=== PATIENT | female | born 1980 | race African-American/Black ===

== ENCOUNTER 2016-12-09 06:00 | Inpatient (IN) | payer OTHER ==
--- NOTE | 2016-12-09 06:54 | HP ---
Past Medical History - Primary Care Physician PCP:: Hiren Combs - Admission Chief Complaint: 38.6 weeks,previous c/s . labor, ama History of Present Illness: 36 yo f g 5 [id number] weeks, with 2 previous c/s in labor , no rom, cx 1 cm,80 vx -2 mi, fhr cat 1, contraction q 2min History Source: Patient Limitations to Obtaining History: No Limitations - Past Medical History Infectious Disease: Yes: STD's (hsv, no recent out break) - Past Surgical History Past Surgical History: Yes: Hx Myomectomy: No Hx Transabdominal Cerclage: No - Smoking History Smoking history: Current every day smoker Have you smoked in the past 12 months: Yes Aproximately how many cigarettes per day: 5 - Alcohol/Substance Use Hx Alcohol Use: No - Social History Usual Living Arrangement: Yes: With Spouse History of Recent Travel: No Home Medications - Allergies Allergies/Adverse Reactions: Allergies Allergy/AdvReac Type Severity Reaction Status Date / Time No Known Allergies Allergy Verified 07/21/16 22:49 - Home Medications Home Medications: Ambulatory Orders Simethicone [Gas-X] 125 mg PO ONCE 07/21/16 Review of Systems - Review of Systems Constitutional: reports: No Symptoms Eyes: reports: No Symptoms HENT: reports: No Symptoms Neck: reports: No Symptoms Cardiovascular: reports: No Symptoms Respiratory: reports: No Symptoms Genitourinary: reports: No Symptoms Breasts: reports: No Symptoms Reported Musculoskeletal: reports: No Symptoms Integumentary: reports: No Symptoms Neurological: reports: No Symptoms Endocrine: reports: No Symptoms, Unexplained Weight Gain Psychiatric: reports: No Symptoms Physical Exam - Maternity Constitutional: Yes: Well Nourished, No Distress, Calm Eyes: Yes: WNL, Conjunctiva Clear, EOM Intact HENT: Yes: WNL, Atraumatic, Normocephalic Neck: Yes: WNL, Supple, Trachea Midline Cardiovascular: Yes: WNL, Regular Rate and Rhythm Breast(s): Yes: WNL - Abdominal Exam/OB Fundal Height: 40 Number of Fetuses: Single Presentation: Vertex Contractions: Yes Regularity: Regular Intensity: Strong Monitor Mode: External Heart Rate Location: [facility] Category: I Accelerations: Uniform Decelerations: None - Vaginal Exam/OB Vaginal Bleediing: Bloody Show Speculum Exam: No Dilatation (cm): 1 Effacement (%): 80 Amniotic Membrane Status: Intact Presentation: Vertex/Position Station: -2 - Physical Exam Musculoskeletal: Yes: WNL Extremities: Yes: WNL Edema: Yes Edema: LLE: 1+, RLE: 1+ Deep Tendon Reflex Grade: Normal +2 Psychiatric: Yes: WNL Hemorrhage Risk Assessment - Risk Factors Medium Risk Factors: Yes: Prior , uterine surgery,or multiple laparotomies Risk Score: 1 Risk Level: Medium Risk Problem List - Problems (1) with 38 completed weeks gestation Code(s): Z3A.38 - 38 WEEKS GESTATION OF (2) Previous section complicating Code(s): O34.219 - MATERNAL CARE FOR UNSP TYPE SCAR FROM PREVIOUS DEL (3) AMA (advanced maternal age) multigravida 35+ Code(s): O09.529 - SUPERVISION OF ELDERLY MULTIGRAVIDA, UNSPECIFIED TRIMESTER Qualifiers: Trimester: third trimester Qualified Code(s): O09.523 - Supervision of elderly multigravida, third trimester (4) Labor established Code(s): [id number] - Assessment/Plan plan admit for repeat c/s , requesting btl, risks of repeat c/s , btl discussed.
[2016-12-09] MEDS ORDERED: CITRIC ACID/SODIUM CITRATE 30 ML UNIT-DOSE CUP PO ONE (06:58)
[2016-12-09] MEDS ORDERED: ELECTROLYTE-148 SOLN 1,000 ML IV SCH (07:00)
[2016-12-09 07:09] VITALS: BMI 34.7
[2016-12-09] MEDS ORDERED: morphine SULFATE/Preservative Free 0.5 MG/ML (1cc Syringe) EP ONE (07:24)
[2016-12-09] MEDS ORDERED: IBUPROFEN 600 MG TABLET (FP) PO PRN (07:24)
[2016-12-09] MEDS ORDERED: ONDANSETRON 4 MG/2 ML VIAL IVPB PRN (07:24)
[2016-12-09 07:52] LABS: ALBUMIN 2.4 g/dl (3.4-5.0); ALK PHOS 165 U/L (45-117); ANION GAP 11 (8-16); BILIRUBIN,TOTAL 0.2 mg/dL (0.2-1.0); CALCIUM 9.4 mg/dL (8.5-10.1); CO2 25 mmol/L (21-32); COCKROFT - GAULT 183.1325; CREATININE 0.7 mg/dL (0.55-1.02); GLUCOSE,RANDOM 76 mg/dL (74-106); SGOT/AST 15 U/L (15-37); SGPT/ALT 14 U/L (12-78); TOT PROT 6.1 g/dl (6.4-8.2)
[2016-12-09] MEDS ORDERED: BENZOCAINE 28 GM HEMORRHOIDAL OINTMENT PR PRN (08:32)
[2016-12-09] MEDS ORDERED: BENZOCAINE 20% 57 GM BOTTLE TP PRN (08:32)
[2016-12-09] MEDS ORDERED: METHYLERGONOVINE MALEATE 0.2 MG/1 ML AMP IM PRN (08:32)
[2016-12-09] MEDS ORDERED: WITCH HAZEL 50% (TUCKS) 40 PAD/JAR PAD TP PRN (08:32)
[2016-12-09] MEDS ORDERED: oxyCODONE HCL 5 MG TABLET PO PRN (08:32)
[2016-12-09] MEDS ORDERED: diphenhydrAMINE HCL 25 MG CAPSULE (FP) PO PRN (08:32)
[2016-12-09] MEDS ORDERED: OXYTOCIN 20 UNITS in 0.9% NS 1,000 ML IV SCH (08:45)
[2016-12-09] MEDS: IBUPROFEN 800 MG/8 ML IJ IVPB PRN ×2 (13:07→19:18)
[2016-12-09] MEDS: CEFAZOLIN (PRE-DOCKED) 50 ML IVPB SCH (15:19)
[2016-12-09] MEDS: DEXTROSE 5%-LACTATED RINGERS 1,000 ML IV SCH (19:19)
[2016-12-10] MEDS: CEFAZOLIN (PRE-DOCKED) 50 ML IVPB SCH (00:49)
[2016-12-10] MEDS: ACETAMINOPHEN 325 MG TABLET (FP) PO PRN ×3 (03:32→20:08)
[2016-12-10] MEDS: IBUPROFEN 600 MG TABLET (FP) PO PRN ×3 (03:32→14:53)
[2016-12-10] MEDS: SIMETHICONE 80 MG TAB.CHEW (FP) PO PRN ×4 (03:32→20:08)
[2016-12-10] MEDS: DEXTROSE 5%-LACTATED RINGERS 1,000 ML IV SCH (03:33)
[2016-12-10 08:06] LABS: BASOPHIL 0.3 % (0-2.0); EOSINOPHIL 0.5 % (0-4.5); MCH 22.6 pg (25.7-33.7); MCHC 31.1 g/dl (32.0-36.0); MEAN CELL VOLUME 72.5 fl (80-96); MEAN PLT VOLUME 9.9 fl (7.5-11.1); NEUTROPHILS 75.1 % (42.8-82.8); PLATELET COUNT 170 K/MM3 (134-434); RDW 15.7 % (11.6-15.6); WHITE BLOOD COUNT 13.7 K/mm3 (4.0-10.0)
[2016-12-10] MEDS ORDERED: BISACODYL 10 MG SUPP.RECT RC PRN (08:33)
--- NOTE | 2016-12-10 09:24 | OP ---
DATE OF OPERATION: 12/09/2016 PREOPERATIVE DIAGNOSIS: , 38.6 weeks gestation, 2 previous sections, in labor, request of repeat section. POSTOPERATIVE DIAGNOSIS: , 38.6 weeks gestation, 2 previous sections, in labor, request of repeat section. PROCEDURE: Repeat low segment transverse section. SURGEON: Gale Combs MD CUSTOMER SECURITY CLERK: DIVINE Paul ANESTHESIA: Spinal. ANESTHESIOLOGIST: Lencho Summers MD ESTIMATED BLOOD LOSS: 500 mL. OPERATION: The patient was taken to the operating room. Under adequate spinal anesthesia, abdomen and perineum were prepped and draped. Pfannenstiel abdominal skin incision was made over the previous incision. Abdominal wall was cut layer by layer, and the peritoneum was exposed and incised. Upon entering the abdominal cavity, lower uterine segment was identified, and uterovesical fold of peritoneum was established, bladder was pushed down. Then, with the lower blade of the [place] retractor in the pelvis, a low transverse uterine incision was made. This incision extended laterally. Amniotic sac was entered, clear fluid, head delivered, nasopharynx was suctioned, and live baby delivered without any difficulty. Placenta was delivered manually. Uterine cavity was cleaned of all remaining tissue. Uterine incision was closed using 2 layers, 1st layer with 0 Biosyn continuous suture, the 2nd layer with 0 Biosyn imbricating the 1st layer. Bladder flap was closed with 0 Biosyn continuous suture. Both tubes and ovaries were checked, were normal. No active bleeding was seen. All the lap pad, sponge, and instrument counts were correct. Then, peritoneum was closed with 0 Biosyn continuous suture, muscles were brought together with interrupted sutures of 0 Biosyn, fascia was closed with 0 Biosyn continuous suture, subcutaneous fat with interrupted suture of 0 Biosyn, and the skin was closed with 4-0 Biosyn subcuticular suture. The patient tolerated the procedure well, left the OR in good condition. GALE COMBS M.D. [id number]
--- NOTE | 2016-12-10 10:13 | PN ---
Progress Note (short form) - Note Progress Note: pod 1 .s/p repeat c/s.sitting in chair , has mild uterine cramps, no excess vaginal bleeding CBC, BMP 12/10/16 06:00 12/09/16 07:00 abdomen soft, no distension , uterus firm, incision dry, clean , no calf tenderness lochia mild plan ambulate, advance diet, pain management Problem List - Problems (1) with 38 completed weeks gestation Code(s): Z3A.38 - 38 WEEKS GESTATION OF (2) Previous section complicating Code(s): O34.219 - MATERNAL CARE FOR UNSP TYPE SCAR FROM PREVIOUS DEL (3) AMA (advanced maternal age) multigravida 35+ Code(s): O09.529 - SUPERVISION OF ELDERLY MULTIGRAVIDA, UNSPECIFIED TRIMESTER Qualifiers: Trimester: third trimester Qualified Code(s): O09.523 - Supervision of elderly multigravida, third trimester (4) Labor established Code(s): [id number] -
[2016-12-10] MEDS: ENOXAPARIN NA (PORCINE) 40 MG/0.4 ML DISP.SYRIN SQ SCH (10:32)
--- NOTE | 2016-12-10 17:56 | PN ---
Progress Note (short form) - Note Progress Note: Anesthesiology Post-op POD#1 s/p C/S under spinal anesthesia. Pt. feeling well, denies pain or h/a. Walking and able to urinate without difficulty. VSS.
[2016-12-10] MEDS: oxyCODONE HCL 5 MG TABLET PO PRN (20:07)
[2016-12-11] MEDS: oxyCODONE HCL 5 MG TABLET PO PRN ×5 (00:33→19:32)
[2016-12-11] MEDS: ACETAMINOPHEN 325 MG TABLET (FP) PO PRN ×5 (00:33→19:33)
[2016-12-11] MEDS: SIMETHICONE 80 MG TAB.CHEW (FP) PO PRN ×4 (00:33→19:32)
--- NOTE | 2016-12-11 06:53 | PN ---
Post Progress Note - Subjective Subjective: 36 yo P3 no complains + flatus, + ambulation, tolerating PO Post Day: 2 Type of Delivery: Repeat C/S Vital Signs: Vital Signs Temperature 97.8 F 12/10/16 22:00 Pulse Rate 75 12/10/16 22:00 Respiratory Rate 18 12/10/16 22:00 Blood Pressure 99/64 12/10/16 22:00 O2 Sat by Pulse Oximetry (%) 99 12/09/16 09:30 Breast Exam: Yes: Soft Uterus: Yes: Fundus Firm Incision: Yes: Dressing dry and intact, Bryce intact Abdomen/GI: Yes: Abdomen soft Lochia: Yes: Rubra Lochia, amount: Small Extremities: Yes: Calves non-tender - Labs Labs: CBC WBC 13.7 K/mm3 (4.0-10.0) H 12/10/16 06:00 RBC 3.70 M/mm3 (3.60-5.2) 12/10/16 06:00 Hgb 8.4 GM/dL (10.7-15.3) L 12/10/16 06:00 Hct 26.8 % (32.4-45.2) L 12/10/16 06:00 MCV 72.5 fl (80-96) L 12/10/16 06:00 MCHC 31.1 g/dl (32.0-36.0) L 12/10/16 06:00 RDW 15.7 % (11.6-15.6) H 12/10/16 06:00 Plt Count 170 K/MM3 (134-434) 12/10/16 06:00 MPV 9.9 fl (7.5-11.1) 12/10/16 06:00 Neutrophils % 75.1 % (42.8-82.8) D 12/10/16 06:00 Lymphocytes % 15.4 % (8-40) D 12/10/16 06:00 Monocytes % 8.7 % (3.8-10.2) 12/10/16 06:00 Eosinophils % 0.5 % (0-4.5) 12/10/16 06:00 Basophils % 0.3 % (0-2.0) 12/10/16 06:00 Assessment/Plan 36yo P3 POD # 2 s/p Repeat c/s and BTL doing well, VSS continue, routine PP care
[2016-12-11] MEDS: ENOXAPARIN NA (PORCINE) 40 MG/0.4 ML DISP.SYRIN SQ SCH (09:47)
[2016-12-11] MEDS: DEXTROSE 5%-LACTATED RINGERS 1,000 ML IV SCH (16:57)
[2016-12-11] MEDS ORDERED: SENNOSIDES/DOCUSATE COMBO (SENNA PLUS) TABLET (UD) PO PRN (22:00)
[2016-12-12] MEDS: ACETAMINOPHEN 325 MG TABLET (FP) PO PRN ×2 (01:34→07:18)
[2016-12-12] MEDS: oxyCODONE HCL 5 MG TABLET PO PRN ×2 (01:34→07:16)
[2016-12-12] MEDS: SIMETHICONE 80 MG TAB.CHEW (FP) PO PRN ×2 (01:34→07:16)
--- NOTE | 2016-12-12 07:20 | PN ---
Post Progress Note - Subjective Subjective: 36 yo P3 now s/p R c/s and BTL +voiding, +flatus, + small BM, ambulating, no breast feeding Post Day: 3 Type of Delivery: Repeat C/S Vital Signs: Vital Signs Temperature 98.0 F 12/11/16 19:37 Pulse Rate 86 12/11/16 19:37 Respiratory Rate 20 12/11/16 19:37 Blood Pressure 138/88 12/11/16 19:37 O2 Sat by Pulse Oximetry (%) 99 12/09/16 09:30 Breast Exam: Yes: Soft Uterus: Yes: Fundus Firm Incision: Yes: Dressing dry and intact, Sutures intact Abdomen/GI: Yes: Abdomen soft, Passing flatus, Tolerating PO Lochia: Yes: Rubra Lochia, amount: Small Activity: Ambulating - Labs Labs: CBC WBC 13.7 K/mm3 (4.0-10.0) H 12/10/16 06:00 RBC 3.70 M/mm3 (3.60-5.2) 12/10/16 06:00 Hgb 8.4 GM/dL (10.7-15.3) L 12/10/16 06:00 Hct 26.8 % (32.4-45.2) L 12/10/16 06:00 MCV 72.5 fl (80-96) L 12/10/16 06:00 MCHC 31.1 g/dl (32.0-36.0) L 12/10/16 06:00 RDW 15.7 % (11.6-15.6) H 12/10/16 06:00 Plt Count 170 K/MM3 (134-434) 12/10/16 06:00 MPV 9.9 fl (7.5-11.1) 12/10/16 06:00 Neutrophils % 75.1 % (42.8-82.8) D 12/10/16 06:00 Lymphocytes % 15.4 % (8-40) D 12/10/16 06:00 Monocytes % 8.7 % (3.8-10.2) 12/10/16 06:00 Eosinophils % 0.5 % (0-4.5) 12/10/16 06:00 Basophils % 0.3 % (0-2.0) 12/10/16 06:00 Assessment/Plan 36yo P3 POD # 3 s/p Repeat c/s and BTL doing well, VSS D/c home today Rh positive NPV for 6weeks RTO 6 weeks
[2016-12-12 08:09] VITALS: BP 132/81; PULSE 73; TEMP 98.4
--- NOTE | 2016-12-12 08:23 | DS ---
Physical Exam-SALES AGENT PEST CONTROL SERVICE Vital Signs: Vital Signs Temperature 98.4 F 12/12/16 08:07 Pulse Rate 73 12/12/16 08:07 Respiratory Rate 20 12/12/16 08:07 Blood Pressure 132/81 12/12/16 08:07 O2 Sat by Pulse Oximetry (%) 99 12/09/16 09:30 Constitutional: Yes: Well Nourished, No Distress, Calm Eyes: Yes: WNL, Conjunctiva Clear, EOM Intact HENT: Yes: WNL, Atraumatic, Normocephalic Neck: Yes: WNL, Supple, Trachea Midline Cardiovascular: Yes: WNL, Regular Rate and Rhythm Respiratory: Yes: WNL, Regular, CTA Bilaterally Gastrointestinal: Yes: WNL ...Rectal Exam: Yes: WNL Renal/: Yes: WNL ....Post : Yes: Uterus firm, Uterus non-tender, Slight lochia rubra Breast(s): Yes: WNL Musculoskeletal: Yes: WNL Extremities: Yes: WNL Edema: LLE: Trace, RLE: Trace Integumentary: Yes: WNL Wound/Incision: Yes: Clean/Dry, Well Approximated, Sutures Intact Neurological: Yes: WNL, Alert, Oriented ...Motor Strength: WNL Psychiatric: Yes: WNL, Alert, Oriented Labs: CBC, BMP 12/10/16 06:00 12/09/16 07:00 Delivery - Delivery Section: Repeat (no complication), Low Flap Transverse Type of Anesthesia: Spinal Episiotomy/Laceration: None EBL (cc): 500 Delivery, Single - Stages of Labor Date 1st Stage Initiatied: 12/09/16 Time 1st Stage Initiated: 05:00 Date of Delivery: 12/09/16 Time of Delivery: 07:51 Time Placenta Delivered: 07:52 Placenta: Yes: Expressed - Condition of Infant Link Wire Fabric Machine Tender/Retirement Village Manager Present: Yes Name: Rodney Cole Infant Gender: Female Weight: 7 lb 1 oz Position: Right, OT Total Hours ROM (Hrs/Mins): 2m - 1 Minute Total Score: 8 5 Minutes Total Score: 9 - [place] Feeding Plan Initial Plan: Elected not to breastfeed exclusively throughout hospitalization Discharge Summary Reason For Visit: ADMIT Current Active Problems AMA (advanced maternal age) multigravida 35+ (Acute) Labor established (Acute) with 38 completed weeks gestation (Acute) Previous section complicating (Acute) Procedures: Principal: repeat LST c/s Condition: Good - Instructions Diet, Activity, Other Instructions: Physical activity Resume your normal everyday activity as tolerated no heavy lifting or exercise until seen by your surgeon. You may walk unlimited magy of and climb stairs. You may resume driving the car when you feel safe and comfortable behind the wheel. No sexual activity as instructed. Wound care If you have a bandage, leave it on, and keep dry for 48-72 hours. After that time discard the outer bandage. If they are tapes on the skin under the out of bandage leave them in place. They will peel off in the next 7 to 10 days. Do Not Peel them off. You may shower the day after surgery. If there are tapes present on the skin, you may shower over them. Diet There are no dietary restrictions. Eat healthy, high-fiber foods. Drink 6 to 8 glasses of liquid each day. This will assist in keeping your bowels are regular. Pain management You may take Tylenol or acetaminophen or Ibuprofen (for example, Motrin, Advil etc.) from my pain prescription medication is ordered should be taken as prescribed for moderate to severe pain. Call MD for any of the following: Severe pain not relieved by medication Fever of 101 or higher Excessive bleeding or drainage on dressing Inability to urinate return to office in 1 week. call for appointment. Referrals: Francy Diallo MD [Staff Physician] - Disposition: HOME - Home Medications Comprehensive Discharge Medication List: Ambulatory Orders Simethicone [Gas-X] 125 mg PO ONCE 07/21/16 Vit No.130/Iron/FA [ Vitamins] 1 each PO DAILY 12/09/16 Oxycodone HCl/Acetaminophen [Percocet 5-325 mg Tablet] 2 tab PO Q4H #20 tablet MDD 8 12/12/16
--- NOTE | 2016-12-12 08:32 | DS ---
Physical Exam-FRANCHISE MANAGER Vital Signs: Vital Signs Temperature 98.4 F 12/12/16 08:07 Pulse Rate 73 12/12/16 08:07 Respiratory Rate 20 12/12/16 08:07 Blood Pressure 132/81 12/12/16 08:07 O2 Sat by Pulse Oximetry (%) 99 12/09/16 09:30 Constitutional: Yes: Well Nourished, No Distress, Calm Eyes: Yes: WNL HENT: Yes: WNL Neck: Yes: WNL Cardiovascular: Yes: WNL Respiratory: Yes: WNL Gastrointestinal: Yes: Normal Bowel Sounds, Soft ...Rectal Exam: Yes: WNL Renal/: Yes: WNL External Genitalia: Yes: Normal Musculoskeletal: Yes: WNL Extremities: Yes: WNL Integumentary: Yes: WNL Wound/Incision: Yes: Clean/Dry, Sutures Intact Neurological: Yes: WNL ...Motor Strength: WNL Labs: CBC, BMP 12/10/16 06:00 12/09/16 07:00 Delivery - Delivery Section: Repeat (no complication), Low Flap Transverse Type of Anesthesia: Spinal Episiotomy/Laceration: None EBL (cc): 500 Delivery, Single - Stages of Labor Date 1st Stage Initiatied: 12/09/16 Time 1st Stage Initiated: 05:00 Date of Delivery: 12/09/16 Time of Delivery: 07:51 Time Placenta Delivered: 07:52 Placenta: Yes: Expressed - Condition of Dispatcher Automobile Rental/Coffee Shop Aide Present: Yes Name: Rodney Cole Gender: Female Weight: 7 lb 1 oz Position: Right, OT Total Hours ROM (Hrs/Mins): 2m - 1 Minute Total Score: 8 5 Minutes Total Score: 9 - [place] Feeding Plan Initial Plan: Elected not to breastfeed exclusively throughout hospitalization Remarks - Remarks Remarks: 36 yo P3 s/p repeat c/s ant BTL normal post c/section recovery Discharge Summary Reason For Visit: ADMIT Current Active Problems AMA (advanced maternal age) multigravida 35+ (Acute) Labor established (Acute) with 38 completed weeks gestation (Acute) Previous section complicating (Acute) Condition: Good - Instructions Diet, Activity, Other Instructions: Physical activity Resume your normal everyday activity as tolerated no heavy lifting or exercise until seen by your surgeon. You may walk unlimited magy of and climb stairs. You may resume driving the car when you feel safe and comfortable behind the wheel. No sexual activity as instructed. Wound care If you have a bandage, leave it on, and keep dry for 48-72 hours. After that time discard the outer bandage. If they are tapes on the skin under the out of bandage leave them in place. They will peel off in the next 7 to 10 days. Do Not Peel them off. You may shower the day after surgery. If there are tapes present on the skin, you may shower over them. Diet There are no dietary restrictions. Eat healthy, high-fiber foods. Drink 6 to 8 glasses of liquid each day. This will assist in keeping your bowels are regular. Pain management You may take Tylenol or acetaminophen or Ibuprofen (for example, Motrin, Advil etc.) from my pain prescription medication is ordered should be taken as prescribed for moderate to severe pain. Call MD for any of the following: Severe pain not relieved by medication Fever of 101 or higher Excessive bleeding or drainage on dressing Inability to urinate return to office in 1 week. call for appointment. Referrals: Francy Diallo MD [Staff Physician] - Disposition: HOME - Home Medications Comprehensive Discharge Medication List: Ambulatory Orders Simethicone [Gas-X] 125 mg PO ONCE 07/21/16 Vit No.130/Iron/FA [ Vitamins] 1 each PO DAILY 12/09/16 Oxycodone HCl/Acetaminophen [Percocet 5-325 mg Tablet] 2 tab PO Q4H #20 tablet MDD 8 12/12/16
[2016-12-12 08:48] LABS: BASOPHIL 0.5 % (0-2.0); EOSINOPHIL 1.7 % (0-4.5); MCH 23.1 pg (25.7-33.7); MCHC 31.9 g/dl (32.0-36.0); MEAN CELL VOLUME 72.4 fl (80-96); NEUTROPHILS 57.7 % (42.8-82.8); PLATELET COUNT 219 K/MM3 (134-434); RDW 16.1 % (11.6-15.6); WHITE BLOOD COUNT 10.7 K/mm3 (4.0-10.0)
[2016-12-12] MEDS: ENOXAPARIN NA (PORCINE) 40 MG/0.4 ML DISP.SYRIN SQ SCH (09:09)
[2016-12-12] MEDS ORDERED: DIPHTH,PERTUSS(ACELL),TET 0.5 ML DISP.SYRIN IM ONE (10:00)
--- NOTE | 2016-12-15 13:47 | PATH ---
Surgical Pathology Report Patient Name: OLYA LUNDBERG Med. Rec. #: [id number] /Age/Gender: 1980 (Age: 36) / F Account: [id number] Location: [facility] OBS/MEDICAL COORDINATOR PESTICIDE USE Taken: 12/09/2016 Received: 12/12/2016 Reported: 12/15/2016 Physicians: Hiren Combs M.D. Specimen(s) Received PLACENTA Clinical History , previous c/section x2 in labor, SROM Repeat c/section Final Diagnosis PLACENTA, DELIVERY: FOCALLY DISRUPTED THIRD TRIMESTER PLACENTA WITH MODERATE INCREASE IN PREVILLOUS, PERIVILLOUS, AND PRECHORIONIC FIBRIN DEPOSITION, THREE VESSEL UMBILICAL CORD, AND PLACENTAL MEMBRANES WITH AMNION HYPERPLASIA. Electronically Signed Morgan Crowder M.D. Gross Description The specimen is received fresh, labeled "placenta" and is a 433 gram, 19.0 x 14.5 x 2.3 cm placenta with attached membranes and umbilical cord. The attached membranes are nicole, translucent with focal opacities and insert marginally. The umbilical cord measures 36 cm in length and averages 1 cm in diameter. The cord inserts eccentrically, 5.5 cm to the nearest margin. No true knots or strictures are identified. Cut surface of the umbilical cord reveals 3 vessels. The surface is hallman-blue with fibrin deposition and appropriate caliber vessels. The maternal surface is red-brown with focal defects. Sectioning reveals red-brown, spongy parenchyma. No focal lesions are identified. Reconnaissance Crewmember sections are submitted in three cassettes as follows: 1- membrane rolls and umbilical cord; 2-3- full thickness sections of placenta. /12/14/2016 [facility]12/14/2016
== END 2016-12-12 11:00 | disposition home or self-care (01) | DRG 766 ==
LOC: JLDR 06:00 → J3W 10:06
PROVIDERS: ADMIT Obstetrics & Gynecology; ATTEND Obstetrics & Gynecology
PROC: 10D00Z1 Extraction of Products of Conception, Low, Open Approach (ICD-10-PCS; principal; 2016-12-09)
DX: O34.211 Maternal care for low transverse scar from previous cesarean delivery (principal); Z3A.38 38 weeks gestation of pregnancy; Z37.0 Single live birth
CPT/HCPCS: 36415; 80053; 85025; 86850; 86900; 86901; 88307-TC; 90715